=== PATIENT | male | born 1995 ===

== ENCOUNTER 2018-07-28 08:21 | Emergency (ER) | payer OTHER ==
[2018-07-28 08:31] VITALS: BMI 37.6
[2018-07-28 08:32] VITALS: TEMP 98.1
--- NOTE | 2018-07-28 08:57 | ED PDOC ---
HPI: Chest Pain Time Seen by Provider: 07/28/18 08:30 Chief Complaint (Nursing): Chest Pain Chief Complaint (Provider): Chest pain, SOB and wheezing History Per: Patient History/Exam Limitations: no limitations Onset/Duration Of Symptoms: Hrs Current Symptoms Are (Timing): Better Quality: Tightness Exacerbating Factors: Deep Breathing (inspiration) Additional Complaint(s): Ash Benites is a 23 year old male, with a past medical history of asthma, who presents to the emergency department complaining of chest pain described as tightness associated with shortness of breath and wheezing onset today. Patient states he used his asthma inhaler with relief of symptoms. Patient reports worsening of discomfort with inspiration. He denies any fever, chills, cough or other medical complaints. PMD: Darrel Gallagher Past Medical History Reviewed: Historical Data, Nursing Documentation, Vital Signs Vital Signs: Last Vital Signs Temp 98.1 F 07/28/18 08:31 Pulse 99 H 07/28/18 08:31 Resp 17 07/28/18 08:31 BP 161/106 H 07/28/18 08:31 Pulse Ox 100 07/28/18 08:31 - Medical History PMH: Asthma - Surgical History Surgical History: No Surg Hx - Family History Family History: States: Unknown Family Hx - Social History Current smoker - smoking cessation education provided: Yes (Current some days smoker) Alcohol: Social Drugs: Denies - Home Medications Home Medications: Ambulatory Orders Medication Instructions Recorded Methylprednisolone [Medrol Dose 4 mg PO DAILY #21 tab 07/28/18 Pack (21 tabs)] - Allergies Allergies/Adverse Reactions: Allergies Allergy/AdvReac Type Severity Reaction Status Date / Time No Known Allergies Allergy Verified 07/28/18 08:44 Review of Systems ROS Statement: Except As Marked, All Systems Reviewed And Found Negative Constitutional: Negative for: Fever Cardiovascular: Positive for: Chest Pain (tightness) Respiratory: Positive for: Shortness of Breath, Wheezing. Negative for: Cough Physical Exam - Reviewed Nursing Documentation Reviewed: Yes Vital Signs Reviewed: Yes - Physical Exam Appears: Positive for: No Acute Distress Head Exam: Positive for: ATRAUMATIC, NORMAL INSPECTION, NORMOCEPHALIC Skin: Positive for: Normal Color, Warm, Dry Eye Exam: Positive for: Normal appearance, EOMI, PERRL Neck: Positive for: Normal, Painless ROM, Supple Cardiovascular/Chest: Positive for: Regular Rate, Rhythm. Negative for: Murmur Respiratory: Positive for: Normal Breath Sounds. Negative for: Wheezing, Respiratory Distress Gastrointestinal/Abdominal: Positive for: Normal Exam, Soft. Negative for: Tenderness Back: Positive for: Normal Inspection. Negative for: L CVA Tenderness, R CVA Tenderness, Vertebral Tenderness Extremity: Positive for: Normal ROM (upper and lower extremities). Negative for: Deformity Neurologic/Psych: Positive for: Alert, Oriented - ECG ECG Rhythm: Positive for: Sinus Tachycardia. Negative for: ST/T Changes Rate: 100 O2 Sat by Pulse Oximetry: 100 (RA) Pulse Ox Interpretation: Normal - Progress Re-evaluation Time: 09:08 Condition: Improved (HR 92 no chest pain or SOB) Medical Decision Making Medical Decision Making: Time: 08:30 Initial Impression: Asthma exacerbation Initial Plan: --Chest two views (PA/LAT) [RAD] --Reevaluation Scribe Attestation: Documented by King Nelson, acting as a scribe for Antonio Bennett MD Provider Scribe Attestation: All medical record entries made by the Scribe were at my direction and personally dictated by me. I have reviewed the chart and agree that the record accurately reflects my personal performance of the history, physical exam, medical decision making, and the department course for this patient. I have also personally directed, reviewed, and agree with the discharge instructions and disposition. Disposition - Clinical Impression Clinical Impression: Asthma exacerbation - Patient ED Disposition Is Patient to be Admitted: No Counseled Patient/Family Regarding: Studies Performed, Diagnosis, Need For Followup, Rx Given - Disposition Referrals: [facility] [Outside] Disposition: Routine/Home Disposition Time: 09:09 Condition: FAIR Prescriptions: Methylprednisolone [Medrol Dose Pack (21 tabs)] 4 mg PO DAILY #21 tab Instructions: Asthma in Adults Forms: [employer] (Mongolian)
[2018-07-28 09:12] VITALS: RESP 16
--- NOTE | 2018-07-28 09:14 | RAD ---
Date of service: 07/28/2018 HISTORY: Chest pain COMPARISON: No prior. TECHNIQUE: Chest PA and lateral FINDINGS: LUNGS: No active pulmonary disease. PLEURA: No significant pleural effusion identified. No pneumothorax apparent. CARDIOVASCULAR: No aortic atherosclerotic calcification present. Normal cardiac size. No pulmonary vascular congestion. OSSEOUS STRUCTURES: No significant abnormalities. VISUALIZED UPPER ABDOMEN: Normal. OTHER FINDINGS: None. IMPRESSION: No acute cardiopulmonary disease appreciated.
[2018-07-28 09:20] VITALS: BP 139/85; PULSE 93; O2SAT 100
== END 2018-07-28 09:17 | disposition home or self-care (01) ==
LOC: H.ER 08:21
DX: J45.901 Unspecified asthma with (acute) exacerbation (principal); F17.200 Nicotine dependence, unspecified, uncomplicated